=== PATIENT | female | born 1980 | race Caucasian/White ===

== ENCOUNTER → 2021-07-23 07:55 | Outpatient (BNVA) | payer BC, SELFPAY | PROVIDERS: PCP Family Medicine; Visit Provider Psychiatry & Neurology Neurology ==

== ENCOUNTER → 2021-09-15 14:54 | Outpatient (BNVA) | payer BC, SELFPAY | PROVIDERS: PCP Family Medicine; Visit Provider Psychiatry & Neurology Neurology | DX: Z13.89 Encounter for screening for other disorder (principal) ==

== ENCOUNTER → 2021-11-24 09:51 | Outpatient (REF) | payer BC, SELFPAY | LOC: HO.SL 09:51 | PROVIDERS: PCP Family Medicine; Visit Provider Psychiatry & Neurology Neurology | DX: G47.10 Hypersomnia, unspecified (principal); R06.83 Snoring; R53.83 Other fatigue | CPT/HCPCS: 95806 ==

== ENCOUNTER → 2022-07-13 09:23 | Outpatient (BNVA) | payer BC, SELFPAY | PROVIDERS: PCP Family Medicine; Visit Provider Psychiatry & Neurology Neurology | DX: Z13.89 Encounter for screening for other disorder (principal) ==

== ENCOUNTER 2023-10-25 14:14 | Outpatient (AMB) | payer BC, SELFPAY ==
--- NOTE | 2023-10-25 14:25 | MHC.OFFVIS ---
Vital Signs 10/25/23 14:26 Height 5 ft 4 in Weight 153 lb 4 oz BMI 26.3 BP 108/66 Blood Pressure Location Rt brachial Position Sitting Respiration 16 Pulse 71 Pulse Source Pulse Oximeter Pulse Oximetry (%) 100 Oxygen Delivery Method Room Air Intake Visit Reasons: Follow up - Confirmed Intake Note: Pt presents to the office for follow up of chronic migraines. Clip On Sunglasses Inspector Required: No Allergies No Known Allergies Allergy (Verified 10/25/23 14:26) Medication List - Last Reconciled 10/25/23 by Frances Garcia MD baclofen 20 mg (2 x 10 mg) PO BEDTIME 30 days magnesium oxide 400 mg PO BEDTIME multivitamin (Daily Multi-Vitamin tablet) 1 tab PO DAILY ondansetron 4 mg PO Q8H PRN sumatriptan succinate 100 mg orally; 1 tab at onset and can repeat in 2 hrs maximum 2 tabs a day topiramate 25 mg PO BEDTIME topiramate 50 mg PO BID HPI Comments Details: 43y/o female comes for follow up. Baclofen helps with her morning headaches She had 3- 8 migraines /mth and regular headaches every other day. she takes imitrex for migraines which used to help but not helping anymore and makes her nauseous. she is on magnesium , Vit B 2 . Magnesium helped with her sleep and her jaw.. she wears a mouth guard Home sleep test is normal [facility] Medical History (Updated 10/25/23 @ 14:59 by Frances Garcia MD) Kidney disease Fatigue Snoring Migraine headache Chronic headaches TMJ (dislocation of temporomandibular joint) Surgical History History of open heart surgery H/O foot surgery Family History Mother HTN (hypertension) Migraines Father Autoimmune hepatitis Social History Alcohol intake: former Patient Tobacco Use Status: Never used Tobacco Current occupational status: employed Current occupation: Teacher Physical Exam Vital Signs: Last Vital Signs Pulse 71 10/25/23 14:26 Resp 16 10/25/23 14:26 BP 108/66 10/25/23 14:26 Pulse Ox 100 10/25/23 14:26 Oxygen Delivery Method Room Air 10/25/23 14:26 BMI result Body Mass Index 26.3 Const General: cooperative, healthy appearing, comfortable and no acute distress Nutritional Appearance: overweight Orientation/consciousness: patient oriented x3 HEENT Other: Mallampatti grade 4 restricted opening of her mouth due to marah tight TMJ with clicking Eyes Pupils: Equal, round and reactive pupils present Neuro General: patient oriented x3, gait normal, tone normal, moves all extremities, no focal motor deficits and CN's II-XI intact bilaterally Cranial nerves: Yes Equal, round and reactive pupils present, Yes Bilaterally intact EOM present, Yes Nystagmus not present, Yes Normal facial strength present and Yes Midline tongue present Gait exam (Neuro): Normal gait present Motor exam (neuro): 5/5 motor strength present throughout, Pronator motor function not present and Normal motor muscle tone present throughout Psych Appearance: grossly normal Assessment & Plan Assessment & Plan (1) TMJ (dislocation of temporomandibular joint): Code(s): S03.00XA - Dislocation of jaw, unspecified side, initial encounter Category: Medical (2) Migraine headache: Code(s): G43.909 - Migraine, unspecified, not intractable, without status migrainosus (3) Chronic headaches: Code(s): R51.9 - Headache, unspecified; G89.29 - Other chronic pain Category: Medical Plan Topiramate 50mg qam and 75mg qhs Ajovy 675mg q 3 mths sq for migraine prevention Ubrelvy 100mg as needed for migraines zofran 4mg as needed for nausea. magnesium 4oomg and vitamin B2 400 mg do a prevention of her daily headaches and migraines. baclofen 20mg qhs for jaw tightness. PT for TMJ , ice heat therapy , home exercises continue Imitrex 100 mg as needed for her migraines and Excedrin migraine as needed. I suggested she continue using her mouth guard to decrease the jaw tightness Medications: New fremanezumab-vfrm (Ajovy Syringe) administer as 3 consecutive 225 mg injections 675 mg (4.5 mL) subcut [id number] 4.5 mL 3RF ubrogepant (Ubrelvy) 100 mg PO ONCE PRN 14 tabs 6RF migraine MDD 2 tabs Coding Level of Care Code Est Pt Level 4 (48514) Complex EM visit Add On G2211 Diagnoses TMJ (dislocation of temporomandibular joint) S03.00XA Migraine headache G43.909 Chronic headaches R51.9; G89.29
[2023-10-25 14:26] VITALS: BP 108/66; PULSE 71; RESP 16; O2SAT 100; BMI 26.3
== END 2023-10-25 15:06 | disposition home or self-care (01) ==
PROVIDERS: PCP Family Medicine; Visit Provider Psychiatry & Neurology Neurology
DX: S03.00XA Dislocation of jaw, unspecified side, initial encounter (principal); G43.909 Migraine, unspecified, not intractable, without status migrainosus; R51.9 Headache, unspecified; G89.29 Other chronic pain
CPT/HCPCS: 99214

== ENCOUNTER → 2023-10-25 14:14 | Outpatient (BNVA) | payer BC, SELFPAY | PROVIDERS: PCP Family Medicine; Visit Provider Psychiatry & Neurology Neurology ==

== ENCOUNTER 2024-05-02 14:10 | Outpatient (AMB) | payer BC, SELFPAY ==
--- NOTE | 2024-05-02 14:11 | A.OFFVIS_ITS ---
Vital Signs 05/02/24 14:12 Height 5 ft 4 in BP 122/80 Blood Pressure Location Rt brachial Position Sitting Intake Visit Reasons: 6mon follow up Intake Note: Patient presents for 6 month follow up. Allergies No Known Allergies Allergy (Verified 05/02/24 14:15) Medication List - Last Reconciled 05/02/24 by Frances Garcia MD baclofen 20 mg (2 x 10 mg) PO BEDTIME 30 days fremanezumab-vfrm (Ajovy Syringe) 675 mg (4.5 mL) subcut [id number] magnesium oxide 400 mg PO BEDTIME multivitamin (Daily Multi-Vitamin tablet) 1 tab PO DAILY ondansetron 4 mg PO Q8H PRN sumatriptan succinate 100 mg orally; 1 tab at onset and can repeat in 2 hrs maximum 2 tabs a day topiramate 50 mg PO BID ubrogepant (Ubrelvy) 100 mg PO ONCE PRN MDD 2 tabs HPI Comments Details: 43y/o female comes for follow up.Her migraine shave decreased significantly with Ajovy 675mg q 3 mths . 1 migraine a month and less severe. Baclofen helps with her morning headaches SUmatriptan helps with her migraines she is on magnesium , Vit B 2 . Magnesium helped with her sleep and her jaw.. she wears a mouth guard Home sleep test is normal [facility] Medical History (Updated 05/02/24 @ 14:30 by Frances Garcia MD) Chronic migraine without aura, not intractable, without status migrainosus Kidney disease Fatigue Snoring Migraine headache Chronic headaches TMJ (dislocation of temporomandibular joint) Surgical History History of open heart surgery H/O foot surgery Family History Mother HTN (hypertension) Migraines Father Autoimmune hepatitis Social History Alcohol intake: former Patient Tobacco Use Status: Never used Tobacco Current occupational status: employed Current occupation: Teacher Physical Exam Vital Signs: Last Vital Signs BP 122/80 05/02/24 14:12 Const General: cooperative, healthy appearing, comfortable and no acute distress Nutritional Appearance: overweight Orientation/consciousness: patient oriented x3 HEENT Other: Mallampatti grade 4 restricted opening of her mouth due to marah tight TMJ with clicking Eyes Pupils: Equal, round and reactive pupils present Neuro General: patient oriented x3, gait normal, tone normal, moves all extremities, no focal motor deficits and CN's II-XI intact bilaterally Cranial nerves: Yes Equal, round and reactive pupils present, Yes Bilaterally intact EOM present, Yes Nystagmus not present, Yes Normal facial strength present and Yes Midline tongue present Gait exam (Neuro): Normal gait present Motor exam (neuro): 5/5 motor strength present throughout, Pronator motor function not present and Normal motor muscle tone present throughout Psych Appearance: grossly normal Assessment & Plan Assessment & Plan (1) Chronic migraine without aura, not intractable, without status migrainosus: Code(s): G43.709 - Chronic migraine without aura, not intractable, without status migrainosus Category: Medical (2) TMJ (dislocation of temporomandibular joint): Code(s): S03.00XA - Dislocation of jaw, unspecified side, initial encounter Category: Medical Qualifiers: Encounter type: subsequent encounter Qualified Code(s): S03.00XD - Dislocation of jaw, unspecified side, subsequent encounter Plan Taper Topiramate 50mg bid , then 25mg qam and 50mg qhs , 25mg bid and stop Ajovy 675mg q 3 mths sq for migraine prevention magnesium 4oomg and vitamin B2 400 mg do a prevention of her daily headaches and migraines. baclofen 20mg qhs for jaw tightness continue Imitrex 100 mg as needed for her migraines and Excedrin migraine as needed. I suggested she continue using her mouth guard to decrease the jaw tightness Will get approval for botox for TMJ Medications: Discontinued topiramate Discontinued Reason: Doctor's Order 25 mg PO BEDTIME 30 tabs 6RF ubrogepant (Ubrelvy) Discontinued Reason: Patient no longer taking 100 mg PO ONCE PRN 14 tabs 6RF migraine MDD 2 tabs Coding Level of Care Code Est Pt Level 4 (41585) Complex EM visit Add On G2211 Diagnoses Chronic migraine without aura, not intractable, without status migrainosus G43.709 Dislocation of temporomandibular joint, subsequent encounter S03.00XD Encounter type: subsequent encounter
[2024-05-02 14:12] VITALS: BP 122/80
== END 2024-05-02 14:43 | disposition home or self-care (01) ==
PROVIDERS: PCP Family Medicine; Visit Provider Psychiatry & Neurology Neurology
DX: G43.709 Chronic migraine without aura, not intractable, without status migrainosus (principal); S03.00XD Dislocation of jaw, unspecified side, subsequent encounter
CPT/HCPCS: 99214

== ENCOUNTER 2024-06-26 09:31 | Outpatient (AMB) | payer BC, SELFPAY ==
--- NOTE | 2024-06-26 09:32 | MHC.OFFVIS ---
Vital Signs 06/26/24 09:33 Height 5 ft 4 in Weight 153 lb BMI 26.3 Intake Visit Reasons: BOTOX Intake Note: Patient presents for botox injection Allergies No Known Allergies Allergy (Verified 05/02/24 14:15) Medication List - Last Reconciled 06/26/24 by Frances Gracia MD baclofen 20 mg (2 x 10 mg) PO BEDTIME 30 days fremanezumab-vfrm (Ajovy Syringe) 675 mg (4.5 mL) subcut [id number] magnesium oxide 400 mg PO BEDTIME multivitamin (Daily Multi-Vitamin tablet) 1 tab PO DAILY onabotulinumtoxinA (Botox) 100 units IM ONCE 12 weeks ondansetron 4 mg PO Q8H PRN sumatriptan succinate 100 mg orally; 1 tab at onset and can repeat in 2 hrs maximum 2 tabs a day topiramate 50 mg PO BID HPI Comments Details: ? 43y/o female comes for treatment of migraines with botox. ??? Most frequent reported adverse reactions following injection of botox for chronic migraine include neck pain (9%), headache(5%), eyelid ptosis(4%), migraine(4%), muscular weakness(4%), musculuskeletal stiffness(4%), bronchitis(3%), injection site pain (3%), musculoskeletal pain(3%), myalgia(3%), facial paresis(2%), HTN(2%) and muscle spasms(2%) were discussed in detail. ??? Botulinum toxin typeA 200units Lot no [id number] expiration September 2025 was diluted with 4 cc of normal saline . ??? Muscles injected- ??? Frontalis 4 sites ??? Procerus 1 site ??? Technology Trainer- 2 sites ??? Temporalis- 8 sites ??? Occipitalis- 6 sites ??? Cervical paraspinals- 4 sites ??? Trapezius- 6 sites- 5 units each ??? 5 units each in 31 site Celio Zygomaticus 10 units each ??? Total use- 175units ??? Discarded-25units [facility] Medical History Chronic migraine without aura, not intractable, without status migrainosus Kidney disease Fatigue Snoring Migraine headache Chronic headaches TMJ (dislocation of temporomandibular joint) Surgical History History of open heart surgery H/O foot surgery Family History Mother HTN (hypertension) Migraines Father Autoimmune hepatitis Social History Alcohol intake: former Patient Tobacco Use Status: Never used Tobacco Current occupational status: employed Current occupation: Teacher Physical Exam Vital Signs: BMI result Body Mass Index 26.3 Const General: cooperative, healthy appearing, comfortable and no acute distress Nutritional Appearance: overweight Orientation/consciousness: patient oriented x3 HEENT Other: Mallampatti grade 4 restricted opening of her mouth due to celio tight TMJ with clicking Eyes Pupils: Equal, round and reactive pupils present Neuro General: patient oriented x3, gait normal, tone normal, moves all extremities, no focal motor deficits and CN's II-XI intact bilaterally Cranial nerves: Yes Equal, round and reactive pupils present, Yes Bilaterally intact EOM present, Yes Nystagmus not present, Yes Normal facial strength present and Yes Midline tongue present Gait exam (Neuro): Normal gait present Motor exam (neuro): 5/5 motor strength present throughout, Pronator motor function not present and Normal motor muscle tone present throughout Psych Appearance: grossly normal Office Procedures Botulinum toxin Injection 78395 - Migraine Procedure code (CPT) selection complete Office Meds onabotulinumtoxinA 200 unit solution for injection Performing Provider: Frances Garcia MD Performing Location: [facility] Administered by: Frances Garcia MD on 06/26/24 10:04 Dose Route Admin Location Dispensed Lot Number Expiration Date [facility] Freel[employer] Translator 175 unit IM 200 units [id number] ALLERGAN/BOTOX Comments: see hpi Assessment & Plan Assessment & Plan (1) Chronic migraine without aura, not intractable, without status migrainosus: Code(s): G43.709 - Chronic migraine without aura, not intractable, without status migrainosus Category: Medical (2) TMJ (dislocation of temporomandibular joint): Code(s): S03.00XA - Dislocation of jaw, unspecified side, initial encounter Category: Medical Qualifiers: Encounter type: subsequent encounter Qualified Code(s): S03.00XD - Dislocation of jaw, unspecified side, subsequent encounter Plan Patient tolerated the procedure well she will call with any side effects Orders: Orders AMB Botulinum toxin Injection - Patient Supplied N/C Today G43.709 - Chronic migraine without aura, not intractable, without status migrainosus Medications: New onabotulinumtoxinA 200 units IM ONCE 1 ea 0RF migraine G43.709 - Chronic migraine without aura, not intractable, without status migrainosus Coding Level of Care Code Est Pt Level 1 (96353) Diagnoses Chronic migraine without aura, not intractable, without status migrainosus G43.709 Dislocation of temporomandibular joint, subsequent encounter S03.00XD Encounter type: subsequent encounter CPT Codes Botox Injection - Botox 3: 43080 - Migraine ([id number])
[2024-06-26 09:33] VITALS: BMI 26.3
--- OUTSIDE RECORDS SUMMARY | 2024-06-26 10:03 | XMS_ITS | Clinical Summary ---
Author Organization [facility] Address [phone] Counts include 234 beds at the [facility] [employer] [place] [place] [address] Care Team Providers Care Manager Of Allied Health Services Name Role Phone Kellie Rucker NP Primary Care Provider + Karina Rao MD Unavailable [phone] Social History Tobacco Use Types Packs/Day Years Used Date Smoking Tobacco: Never Assessed Education Answer Date Recorded Are you interested in more education? Not on kennedy e 08/28/2023 Are you concerned about learning? Not on file 08/28/2023 No 08/28/2023 No 08/28/2023 Digital Access Answer Date Recorded No 08/28/2023 No 08/28/2023 Reliable internet access at home? Not on file 08/28/2023 Device with a working camera? Not on file Sex and Gender Information Value Date Recorded Sex Assigned at Not on file Gender Identity Not on file Sexual Orientation Not on file Plan of Treatment Not on file Medical Devices Not on file Care Teams Manager Of Allied Health Services Relationship Specialty Start Date End Date Kellie Rucker NP [address] [place] [id number] PCP - General Family Medicine 06/19/18 Karina Rao MD [address] [place] [phone] [email or web address] Insurance Assigned Provider 08/27/23 Additional Source Comments The information contained in this document represents components of the legal health record. It is not the complete legal health record.[facility]
--- OUTSIDE RECORDS SUMMARY | 2024-06-26 10:03 | XMS_ITS | Encounter Summary ---
Author Organization [facility] Address [address] [place] [address] Phone Care Team Providers Care Manager City Name Role Phone Karina Rao MD Primary Care Provider + Encounter Details Date Type Department Care Team (Late Contact Info) Description 05/28/2024 Telephone [facility] [address] [place] [address] Antionette Adams [address] [place] [phone] Social History Tobacco Use Types Packs/Day Years Used Date Smoking Tobacco: Never Alcohol Use Standard Drinks/Week Comments Defer 0 (1 standard drink = 0.6 oz pur e alcohol) Comments Unknown Sex and Gender Information Value Date Recorded Sex Assigned at Not on file Legal Sex Female 11:39 AM EST Gender Identity Not on file Sexual Orientation Not on file documented as of this encounter Miscellaneous Notes * Telephone Encounter - Antionette Adams - 05/28/2024 3:09 PM EST Not needed. documented in this encounter Plan of Treatment Upcoming Encounters Date Type Department Care Team (Late st Contact Info) Description 07/19/2024 2:00 PM EST Office Visit [facility] [address] [place] [address] Stan Mann MD [address] [place] [address] [place] [address] documented as of this encounter Visit Diagnoses Not on filedocumented in this encounter Care Teams Manager City Relationship Specialty Start Date End Date Karina Rao MD [address] [place] [phone] PCP - General Family Medicine 06/29/22 documented as of this encounter
--- OUTSIDE RECORDS SUMMARY | 2024-06-26 10:03 | XMS_ITS | Encounter Summary ---
Author Organization [facility] Address [address] [place] [address] Phone Care Team Providers Care Babcock Tester Name Role Phone Karina Rao MD Primary Care Provider + Encounter Details Date Type Department Care Team (Late Contact Info) Description 03/29/2024 Documentation Only [facility] [address] [place] [address] Antionette Adams [address] [place] [phone] Social History Tobacco Use Types Packs/Day [...] on file documented as of this encounter Plan of Treatment Upcoming Encounters Date Type Department Care Team (Late st Contact Info) Description 07/19/2024 2:00 PM EST Office Visit [facility] [address] [place] [address] Stan Mann MD [address] [place] [address] [place] [address] documented as of this encounter Visit Diagnoses Not on filedocumented in this encounter Care Teams Babcock Tester Relationship Specialty Start Date End Date Karina Rao MD [address] [place] [phone] PCP - General Family Medicine 06/29/22 documented as of this encounter
--- OUTSIDE RECORDS SUMMARY | 2024-06-26 10:03 | XMS_ITS | Encounter Summary ---
Author Organization [facility] Address [phone] [facility] [place] [address] Care Team Providers Care Frog Farmer Name Role Phone Kellie Rucker NP Primary Care Provider + Karina Rao MD Unavailable [phone] Encounter Details Date Type Department Care Team (Late st Contact Info) Description 06/19/2018 Ancillary Orders Virtual Department [address] [place] [address] Kellie Rucker NP [address] [place] [phone] Other specified symptoms and signs involving the circulatory and respiratory systems Social History Tobacco Use Types Packs/Day Years Used Date Smoking Tobacco: Never Assessed Sex and Gender Information Value Date Recorded Sex Assigned at Not on file Gender Identity Not on file Sexual Orientation Not on file documented as of this encounter Plan of Treatment Not on file documented as of this encounter Results * US Carotid Duplex (Bilateral) (06/23/2018 1:43 PM EST) Anatomical Region Laterality Modality Heart, Thoracic Vasculature, Neck Ultrasound 06/23/2018 1:52 PM EST Impressions 06/23/2018 1:54 PM EST Normal carotid ultrasound. No plaque or stenosis is apparent on either side. The source of bruit is not forthcoming. CAROTID STENOSIS REFERENCE USING NASCET CRITERIA: % ICA stenosis = (1 - narrowest ICA diameter/diameter of distal cervical ICA) x 100. Mild - < 50% stenosis. Moderate - 50-69% stenosis. Severe - 70-94% stenosis. Near occlusion - 95-99% stenosis. 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 POS [id number] Narrative 06/23/2018 1:54 PM EST No comparison The real-time exam shows no identifiable plaque in either bifurcation. Doppler analysis shows normal waveforms and velocities in all vessels. The peak systolic flow in the right ICA is about 112 cm/s and in the left ICA 101 cm/s. Normal systolic and diastolic ratios bilaterally. This combination of findings corresponds to less than 50% stenosis relative to distal ICA diameter. Antegrade flow is seen in both vertebral arteries. Procedure Note John Hill MD - 06/23/2018 No comparison The real-time exam shows no identifiable plaque in either bifurcation. Doppler analysis shows normal waveforms and velocities in all vessels. The peak systolic flow in the right ICA is about 112 cm/s and in the leftICA 101 cm/s. Normal systolic and diastolic ratios bilaterally. This combination of findings corresponds to less than 50% stenosisrelative to distal ICA diameter. Antegrade flow is seen in both vertebral arteries. IMPRESSION: Normal carotid ultrasound. No plaque or stenosis is apparent on eitherside. The source of bruit is not forthcoming. CAROTID STENOSIS REFERENCE USING NASCET CRITERIA: % ICA stenosis = (1 - narrowest ICA diameter/diameter of distal cervicalICA) x 100. Mild - < 50% stenosis. Moderate - 50-69% stenosis. Severe - 70-94% stenosis. Near occlusion - 95-99% stenosis. 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 POS [id number] Kellie Rucker NP CV US NEUROVASCU LAR documented in this encounter Visit Diagnoses Diagnosis Other specified symptoms and signs involving the circulatory and respiratory systems Other specified symptoms and signs involving the circulatory and respiratory systems documented in this encounter Care Teams Frog Farmer Relationship Specialty Start Date End Date Kellie Rcuker NP [address] [place] [phone] PCP - General Family Medicine 06/19/18 Karina Rao MD [address] [place] [phone] [email or web address] Insurance Assigned Provider 08/27/23 documented as of this encounter Additional Source Comments The information contained in this document represents components of the legal health record. It is not the complete legal health record.[facility]
--- OUTSIDE RECORDS SUMMARY | 2024-06-26 10:03 | XMS_ITS | Encounter Summary ---
Author Organization [facility] Address [address] [place] [address] Phone Care Team Providers Care Manager Fleet Name Role Phone Karina Rao MD Primary Care Provider + Encounter Details Date Type Department Care Team (Late Contact Info) Description 03/29/2024 Documentation Only [facility] [address] [place] [address] Antionette Adams [address] [place] [phone] Social History Tobacco Use Types Packs/Day [...] Visit [facility] [address] [place] [address] Stan Mann MD [address] [place] [address] [place] [address] documented as of this encounter Visit Diagnoses Not on filedocumented in this encounter Care Teams Manager Fleet Relationship Specialty Start Date End Date Karina Rao MD [address] [place] [id number] PCP - General Family Medicine 06/29/22 documented as of this encounter
--- OUTSIDE RECORDS SUMMARY | 2024-06-26 10:03 | XMS_ITS | Clinical Summary ---
Author Organization [facility] Address [address] [place] [address] Phone Care Team Providers Care Bulk Filler Name Role Phone Karina Rao MD Primary Care Provider + Allergies Active Allergy Reactions Criticality Noted Date Comments Gluten Meal Other (see comments) 09/09/2020 Medications Acetaminophen (Acetaminophen Extra Strength) 500 MG capsule 4 (four) times a day 0 Active Calcium-Magnes ium-Vitamin D (CALCIUM MAGNESIUM PO) Active piroxicam (Feldene) 20 MG capsule 1 (one) time each day 8 Active gabapentin (NEURONTIN) 300 MG capsule 1 capsule 0 Active ibuprofen (ADVIL,MOTRIN) 800 MG tablet 3 (three) times a day 0 Active cephalexin (Keflex) 500 MG capsule 2 (two) times a day 0 Active Multiple Vitamins-Guidance Counselor als (MULTIVITAMIN ADULT EXTRA C PO) Take by mouth 3 Active SUMAtriptan (IMITREX) 25 MG tablet 2 (two) times a day Active cyanocobalamin (VITAMIN B-12) 100 MCG tablet Activ e Ascorbic Acid (Vitamin C) 500 MG capsule See administration instructions Active Active Problems Problem Noted Date Diagnosed Date Chronic kidney disease 07/22/2022 Encounters Date Type Department Care Team Description 05/28/2024 Telephone [facility] [address] [place] [address] Antionette Adams 03/29/2024 Telephone [facility] [address] [place] [address] Antionette Adams 03/29/2024 Documentation Only [facility] [address] [place] [address] Antionette Adams 03/29/2024 Documentation Only [facility] [address] [place] [address] Antionette Adams 03/29/2024 Documentation Only [facility] [address] [place] [address] Antionette Adams from Last 3 Months Immunizations Name Administration Dates Next Due Influenza, Unspecified 03/01/2013 Tdap 12/01/2011 Family History Medical History Relation Comments Hyperlipidemia Father Relation Status Comments Father Social History Tobacco Use Types Packs/Day Years Used Date Smoking Tobacco: Never Tobacco Cessation:Counseling Given: Not Answered Alcohol Use Standard Drinks/Week Comments Defer 0 (1 standard drink = 0.6 oz pur e alcohol) Comments Unknown Sex and Gender Information Value Date Recorded Sex Assigned at Not on file Legal Sex Female 11:39 AM EST Gender Identity Not on file Sexual Orientation Not on file Last Filed Vital Signs Vital Sign Reading Time Taken Comments Blood Pressure 131/81 03/25/2023 3:14 PM EDT Pulse 75 03/25/2023 3:14 PM EDT Temperature - - Respiratory Rate - - Oxygen Saturation - - Inhaled Oxygen Concentration - - Weight - - Height - - Body Mass Index - - Plan of Treatment Upcoming Encounters Date Type Department Care Team (Late st Contact Info) Description 07/19/2024 2:00 PM EST Office [facility] [address] [place] [address] Stan Mann MD [address] [place] [address] [place] [address] Health Maintenance Due Date Last Done Comments Pneumococcal Vaccine: Pediat rics (0 to 5 Years) and At-Risk Patients (6 to 64 Years) (1 of 2 - PCV) 1986 Hepatitis B Vaccine (1 of 3 - 19+ 3-dose series) 10/18 Influenza Vaccine (#1) 2024 03/01/2013 Insurance [facility] Care Teams Bulk Filler Relationship Specialty Start Date End Date Karina Rao MD [address] [place] [phone] PCP - General Family Medicine 06/29/22
--- OUTSIDE RECORDS SUMMARY | 2024-06-26 10:03 | XMS_ITS | Encounter Summary ---
Author Organization [facility] Address [address] [place] [address] Phone Care Team Providers Care Nike Athlete Name Role Phone Karina Rao MD Primary Care Provider + Encounter Details Date Type Department Care Team (Late st Contact Info) Description 06/29/2022 Documentation Only [facility] [address] [place] [phone] Karina Rao MD [address] [place] [phone] Social History Tobacco Use Types Packs/Day Years Used Date Smoking Tobacco: Never Assessed Comments Unknown Sex and Gender Information Value Date Recorded Sex Assigned at Not on file Legal Sex Female 11:39 AM EST Gender Identity Not on file Sexual Orientation Not on file documented as of this encounter Plan of Treatment Upcoming Encounters Date Type Department Care Team (Late st Contact Info) Description 07/19/2024 2:00 PM EST Office Visit [facility] [address] [place] [phone] Stan Mann MD [address] [place] [address] [place] [phone] documented as of this encounter Visit Diagnoses Not on filedocumented in this encounter Care Teams Nike Athlete Relationship Specialty Start Date End Date Karina Rao MD [address] [place] [phone] PCP - General Family Medicine 2/7/23 documented as of this encounter
--- OUTSIDE RECORDS SUMMARY | 2024-06-26 10:03 | XMS_ITS | Encounter Summary ---
Author Organization [facility] Address [address] [place] [address] Phone Care Team Providers Care Ferryboat Captain Name Role Phone Karina Rao MD Primary Care Provider + Encounter Details Date Type Department Care Team (Late Contact Info) Description 03/29/2024 Documentation Only [facility] [address] [place] [address] Antionette Adams [address] [place] [phone] Social History Tobacco Use Types Packs/Day [...] Visit [facility] [address] [place] [address] Stan Mann MD [address] [place] [address] [place] [address] documented as of this encounter Visit Diagnoses Not on filedocumented in this encounter Care Teams Ferryboat Captain Relationship Specialty Start Date End Date Karina Rao MD [address] [place] [phone] PCP - General Family Medicine 06/29/22 documented as of this encounter
== END 2024-06-26 10:01 | disposition home or self-care (01) ==
PROVIDERS: PCP Family Medicine; Visit Provider Psychiatry & Neurology Neurology
DX: G43.709 Chronic migraine without aura, not intractable, without status migrainosus (principal)
CPT/HCPCS: 64615

== ENCOUNTER → 2024-06-26 09:31 | Outpatient (BNVA) | payer BC, SELFPAY | PROVIDERS: PCP Family Medicine; Visit Provider Psychiatry & Neurology Neurology | DX: G43.709 Chronic migraine without aura, not intractable, without status migrainosus (principal); S03.00XD Dislocation of jaw, unspecified side, subsequent encounter; X58.XXXD Exposure to other specified factors, subsequent encounter | CPT/HCPCS: 64615; 99211; J0585 ==

== ENCOUNTER 2024-10-02 13:53 | Outpatient (AMB) | payer BC, SELFPAY ==
[2024-10-02 13:59] VITALS: BMI 25.2
--- NOTE | 2024-10-02 13:59 | A.OFFVIS_ITS ---
Vital Signs 10/02/24 13:59 Height 5 ft 4 in Weight 147 lb BMI 25.2 Intake Visit Reasons: 6 mnts f/u appt BOTOX-LVM Intake Note: patient presents for botox injection.Patient Supplied Allergies No Known Allergies Allergy (Verified 05/02/24 14:15) Medication List - Last Reconciled 10/02/24 by Frances Garcia MD baclofen 20 mg (2 x 10 mg) PO BEDTIME 30 days fremanezumab-vfrm (Ajovy Syringe) 675 mg (4.5 mL) subcut [id number] magnesium oxide 400 mg PO BEDTIME multivitamin (Daily Multi-Vitamin tablet) 1 tab PO DAILY onabotulinumtoxinA (Botox) 100 units IM ONCE 12 weeks sumatriptan succinate 100 mg orally; 1 tab at onset and can repeat in 2 hrs maximum 2 tabs a day topiramate 50 mg PO BID HPI Comments Details: ? 43y/o female comes for treatment of migraines with botox. ??? Most frequent reported adverse reactions following injection of botox for c hronic migraine include neck pain (9%), headache(5%), eyelid ptosis(4%), migraine(4%), muscular weakness(4%), musculuskeletal stiffness(4%), bronchitis(3%), injection site pain (3%), musculoskeletal pain(3%), myalgia(3%), facial paresis(2%), HTN(2%) and muscle spasms(2%) were discussed in detail. ??? Botulinum toxin typeA 100units X2 Lot no [id number] 09/2026 , Lot no [id number] 02/2027 was diluted with 4 cc of normal saline . ??? Muscles injected- ??? Frontalis 4 sites ??? Procerus 1 site ??? Customer Support Technician- 2 sites ??? Temporalis- 8 sites ??? Occipitalis- 6 sites ??? Cervical paraspinals- 4 sites ??? Trapezius- 6 sites- 5 units each ??? 5 units each in 31 site Celio Zygomaticus 10 units each ??? Total use- 175units ??? Discarded-25units [facility] Medical History Chronic migraine without aura, not intractable, without status migrainosus Kidney disease Fatigue Snoring Migraine headache Chronic headaches TMJ (dislocation of temporomandibular joint) Surgical History History of open heart surgery H/O foot surgery Family History Mother HTN (hypertension) Migraines Father Autoimmune hepatitis Social History Alcohol intake: former Patient Tobacco Use Status: Never used Tobacco Current occupational status: employed Current occupation: Teacher Physical Exam Vital Signs: BMI result Body Mass Index 25.2 Const General: cooperative, healthy appearing, comfortable and no acute distress Nutritional Appearance: overweight Orientation/consciousness: patient oriented x3 HEENT Other: Mallampatti grade 4 restricted opening of her mouth due to celio tight TMJ with clicking Eyes Pupils: Equal, round and reactive pupils present Neuro General: patient oriented x3, gait normal, tone normal, moves all extremities, no focal motor deficits and CN's II-XI intact bilaterally Cranial nerves: Yes Equal, round and reactive pupils present, Yes Bilaterally intact EOM present, Yes Nystagmus not present, Yes Normal facial strength present and Yes Midline tongue present Gait exam (Neuro): Normal gait present Motor exam (neuro): 5/5 motor strength present throughout, Pronator motor function not present and Normal motor muscle tone present throughout Psych Appearance: grossly normal Office Procedures Botulinum toxin Injection 22030 - Migraine Procedure code (CPT) selection complete Office Meds onabotulinumtoxinA 100 unit solution for injection Performing Provider: Frances Garcia MD Performing Location: [facility] Administered by: Frances Garcia MD on 10/04/24 10:31 Dose Route Admin Location Dispensed Lot Number Expiration Date [facility] 185 unit subcut 200 units [id number] ALLERGAN/BOTOX Comments: see hpi Assessment & Plan Assessment & Plan (1) Chronic migraine without aura, not intractable, without status migrainosus: Code(s): G43.709 - Chronic migraine without aura, not intractable, without status migrainosus Category: Medical (2) TMJ (dislocation of temporomandibular joint): Code(s): S03.00XA - Dislocation of jaw, unspecified side, initial encounter Category: Medical Qualifiers: Encounter type: subsequent encounter Qualified Code(s): S03.00XD - Dislocation of jaw, unspecified side, subsequent encounter Plan Patient tolerated the procedure well she will call with any side effects Orders: Orders AMB Botulinum toxin Injection - Patient Supplied N/C 10/02/24 G43.709 - Chronic migraine without aura, not intractable, without status migrainosus Medications: New onabotulinumtoxinA 100 units subcut ONCE 2 ea 0RF migraine G43.709 - Chronic migraine without aura, not intractable, without status migrainosus Changed From onabotulinumtoxinA (Botox) inject up to 100 units IM into bilateral masseter, temporalis muscles 100 units IM ONCE 12 weeks 1 ea 3RF S03.00XD - Dislocation of jaw, unspecified side, subsequent encounter To onabotulinumtoxinA Migraines ,inject up to 100 units IM into bilateral masseter, temporalis muscles 200 units IM ONCE 12 weeks 1 ea 3RF S03.00XD - Dislocation of jaw, unspecified side, subsequent encounter Coding Level of Care Code Est Pt Level 1 (29228) Diagnoses Chronic migraine without aura, not intractable, without status migrainosus G43.709 Dislocation of temporomandibular joint, subsequent encounter S03.00XD Encounter type: subsequent encounter CPT Codes Botox Injection - Botox 3: 30523 - Migraine ([id number])
--- OUTSIDE RECORDS SUMMARY | 2024-10-02 15:06 | XMS_ITS | Encounter Summary ---
Author Organization [facility] Address [address] [place] [address] Phone Care Team Providers Care Pyrotechnic Assembler Name Role Phone Karina Rao MD Primary Care Provider + Encounter Details Date Type Department Care Team (Late Contact Info) Description 03/29/2024 Documentation Only [facility] [address] [place] [address] Antionette Adams [address] [place] [phone] Social History Tobacco Use Types Packs/Day [...] Care Team (Late st Contact Info) Description 08/26/2025 1:30 PM EDT Office Visit [facility] [address] [place] [address] Stan Mann MD [address] [place] [address] [place] [address] documented as of this encounter Visit Diagnoses Not on filedocumented in this encounter Care Teams Pyrotechnic Assembler Relationship Specialty Start Date End Date Karina Rao MD [address] [place] [phone] PCP - General Family Medicine 06/29/22 documented as of this encounter
--- OUTSIDE RECORDS SUMMARY | 2024-10-02 15:06 | XMS_ITS | Encounter Summary ---
Author Organization [facility] Address [address] [place] [address] Phone Care Team Providers Care Farm Reporter Name Role Phone Karina Rao MD Primary Care Provider + Encounter Details Date Type Department Care Team (Late Contact Info) Description 03/29/2024 Documentation Only [facility] [address] [place] [address] Antionette Adams [address] [place] [phone] Social History Tobacco Use Types Packs/Day [...] Visit [facility] [address] [place] [address] Stan Mann MD [address] [place] [address] [place] [address] documented as of this encounter Visit Diagnoses Not on filedocumented in this encounter Care Teams Farm Reporter Relationship Specialty Start Date End Date Karina Rao MD [address] [place] [phone] PCP - General Family Medicine 06/29/22 documented as of this encounter
--- OUTSIDE RECORDS SUMMARY | 2024-10-02 15:06 | XMS_ITS | Clinical Summary ---
Author Organization [facility] Address [address] [place] [address] Phone Care Team Providers Care Digital Marketing Analyst Name Role Phone Kellie Rucker NP Primary Care Provider + Karina Rao MD Unavailable Social History Tobacco Use Types Packs/Day Years [...] with a working camera? Not on file Comments Unknown Sex and Gender Information Value Date Recorded Sex Assigned at Not on file Legal Sex Female 9:21 PM EDT Gender Identity Not on file Sexual Orientation Not on file Plan of Treatment Not on file Medical Devices Not on file Insurance [facility] Care Teams Digital Marketing Analyst Relationship Specialty Start Date End Date Kellie Rucker NP [address] [place] [phone] PCP - General Family Medicine 06/19/18 Karina Rao MD [address] [place] [phone] [email or web address] Insurance Assigned Provider 08/27/23 Additional Source Comments The information contained in this document represents components of the legal health record. It is not the complete legal health record.[facility]
--- OUTSIDE RECORDS SUMMARY | 2024-10-02 15:06 | XMS_ITS | Clinical Summary ---
Author Organization [facility] Address [address] [place] [address] Phone Care Team Providers Care Central Communications Specialist Name Role Phone Karina Rao MD Primary [...] (two) times a day 0 Active Multiple Vitamins-Motor Vehicle Assembler als (MULTIVITAMIN ADULT EXTRA C PO) Take by mouth 3 Active SUMAtriptan (IMITREX) 25 MG tablet 2 (two) times a day Active cyanocobalamin (VITAMIN B-12) 100 MCG tablet Activ e Ascorbic Acid (Vitamin C) 500 MG capsule See administration instructions Active Active Problems Problem Noted Date Diagnosed Date Chronic kidney disease 07/22/2022 Encounters Date Type Department Care Team Description 08/23/2024 3:00 PM EDT Office Visit [facility], [address] [place] [address] Stan Mann MD Chronic kidney disease, stage 2 (mild) (Primary Dx) from Last 3 Months Immunizations Immunization Administration Dates Next Due Influenza, Unspecified 03/01/2013 [...] Sign Reading Time Taken Comments Blood Pressure 111/70 08/23/2024 3:14 PM EDT Pulse 80 08/23/2024 3:14 PM EDT Temperature - - Respiratory Rate - - Oxygen Saturation - - Inhaled Oxygen Concentration - - Weight - - Height - - Body Mass Index - - Plan of Treatment Upcoming Encounters Date Type Department Care Team (Late st Contact Info) Description 08/26/2025 1:30 PM EDT Office Visit [facility] [address] [place] [address] Stan Mann MD [address] [place] [address] [place] [phone] Health Maintenance Due Date Last Done Comments Hepatitis B Vaccine (1 of 3 - 19+ 3-dose series) 10/18 Pneumococcal Vaccine: Peds ( 0 to 5 Years) and At-Risk Patients (6 to 49 Years) (1 of 2 - PCV) 10/19/1999 Influenza Vaccine (Season Ended) 2025 03/01/20 13 Insurance [facility] Care Teams Central Communications Specialist Relationship Specialty Start Date End Date Karina Rao MD [address] [place] [phone] PCP - General Family Medicine 06/29/22
--- OUTSIDE RECORDS SUMMARY | 2024-10-02 15:06 | XMS_ITS | Encounter Summary ---
Author Organization [facility] Address [address] [place] [address] Phone Care Team Providers Care Natural Gas Inspector Name Role Phone Karina Rao MD Primary Care Provider + Encounter Details Date Type Department Care Team (Late Contact Info) Description 03/29/2024 Documentation Only [facility] [address] [place] [address] Antionette Adams [address] [place] [phone] Social History Tobacco Use Types Packs/Day [...] Visit [facility] [address] [place] [address] Stan Mann MD [address] [place] [address] [place] [address] documented as of this encounter Visit Diagnoses Not on filedocumented in this encounter Care Teams Natural Gas Inspector Relationship Specialty Start Date End Date Karina Rao MD [address] [place] [phone] PCP - General Family Medicine 06/29/22 documented as of this encounter
--- OUTSIDE RECORDS SUMMARY | 2024-10-02 15:06 | XMS_ITS | Encounter Summary ---
Author Organization [facility] Address [address] [place] [address] Phone Care Team Providers Care Heel Stiffener Name Role Phone Karina Rao MD Primary Care Provider + Encounter Details Date Type Department Care Team (Late st Contact Info) Description 06/29/2022 Documentation Only [facility] [address] [place] [phone] Kairna Rao MD [address] [place] [phone] Social History Tobacco Use Types Packs/Day Years [...] Visit [facility] [address] [place] [address] Stan Mann MD [address] [place] [address] [place] [address] documented as of this encounter Visit Diagnoses Not on filedocumented in this encounter Care Teams Heel Stiffener Relationship Specialty Start Date End Date Karina Rao MD [address] [place] [phone] PCP - General Family Medicine 06/29/22 documented as of this encounter
--- OUTSIDE RECORDS SUMMARY | 2024-10-02 15:06 | XMS_ITS | Encounter Summary ---
Author Organization [facility] Address [address] [place] [address] Phone Care Team Providers Care Hand Sign Writer Name Role Phone Kellie Rucker NP Primary Care Provider + Karina Rao MD Unavailable [phone] Encounter Details Date Type Department Care Team (Late st Contact Info) Description 06/19/2018 Ancillary Orders Virtual Department [address] [place] [address] Kellie Rucker NP [address] [place] [address] [phone] Other specified symptoms and signs involving the [...] 95-99% stenosis. 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 POS [id number] Narrative 06/23/2018 1:54 PM EST No comparison [...] 95-99% stenosis. 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 POS [id number] us Kellie Rucker TWISTER OPERATOR CV US NEUROVASCULAR Lina l Result documented in this encounter Visit Diagnoses Diagnosis Other specified symptoms and signs involving the circulatory and respiratory systems Other specified symptoms and signs involving the circulatory and respiratory systems documented in this encounter Care Teams Hand Sign Writer Relationship Specialty Start Date End Date Kellie Rucker NP [address] [place] [phone] PCP - General Family Medicine 06/19/18 Karina Rao MD [address] [place] [phone] [email or web address] Insurance Assigned Provider 08/27/23 documented as of this encounter Additional Source Comments The information contained in this document represents components of the legal health record. It is not the complete legal health record.[facility]
--- OUTSIDE RECORDS SUMMARY | 2024-10-02 15:07 | XMS_ITS | Patient Health Record ---
Author Organization [facility] Address [address] [facility] [place] [address] Care Team Providers Care Housekeeping/Laundry Name Role Phone Karina Rao MD Primary Care Provider Codi vailable Black, Poly Unavailable [phone] Allergies Allergen (clinical drug ingredient) Drug/Non Drug Allergy documented on EMR Reaction Allergy Type Onset Date Status Gluten Gluten Unknown Allergy Active Reason For Referral No Information Medications Medication SIG (Take, Route, Frequency, Duration) Notes Start Date End Date Status SUMAtriptan Succinate 25 MG 1 tablet at least 2 hours between doses as needed Orally Twice a day Active Physical Therapy . . . 2-3x/week for 3- 4 weeks 03/27/2020 Not-Taking Vitamin C 500 MG as directed Orally Active Calcium Magnesium Ac tive Vitamin B12 Active Keflex 500 MG as directed Orally B ID for 10 days 03/06/2020 Not-Taking Feldene 20 MG 1 capsule with food Orally Once a day for 30 day(s) 12/19/2017 Unknown Gabapentin 300 MG 1 capsule Orally Onc e a day for 30 day(s) 02/15/2020 Not-Taking Ibuprofen 800 MG 1 tablet with food o r milk as needed Orally Three times a day for 14 days 02/15/2020 Not-Taking Acetaminophen Extra Strength 500 MG 2 tablets Orally every 6 hrs for 14 days 02/15/2020 Not-Taking Social History Tobacco Use: Social History Observation Description Date Details (start date - stop date) Never Smoker NA - NA Tobacco Use/Smoking Question Answer Notes Are you a: nonsmoker Additional Findings: Tobacco Non-User Current no n-smoker Alcohol Screen Question Answer Notes Did you have a drink contain ing alcohol in the past year? Yes How often did you have a dri nk containing alcohol in the past year? 2 to 4 times a month (2 points) Points 2 Interpretation Negative Tobacco use other than smoking: Question Answer Notes Are you an other tobacco user? No Problems No Known Problems Plan Of Treatment Pending Test Test Name Order Date X ray : Foot, right 2V 03/06/2020 X ray : Foot, right 3V 03/18/2020 Insurance Providers Payer Name Payer Address Payer Phone Subscriber Number Group Number Insured Name Patient Relationship to Insured Coverage Start Date Coverage End Date [facility] [address] [place] [address] [id number] Eveline Montalvo Self - patient is the insured Medical (General) History Medical History History ICD Code Headaches/Migraines Chicken pox Surgical History Surgery Date(Month/Year) atrial septal defect repair 06/1990 Chante Bunionectomy R 1 hr Yoel B/Dona
== END 2024-10-02 14:35 | disposition home or self-care (01) ==
LOC: HO.HSMS 13:54
PROVIDERS: PCP Family Medicine; Visit Provider Psychiatry & Neurology Neurology
DX: G43.709 Chronic migraine without aura, not intractable, without status migrainosus (principal)
CPT/HCPCS: 64615

== ENCOUNTER → 2024-10-02 13:53 | Outpatient (BNVA) | payer BC, SELFPAY | PROVIDERS: PCP Family Medicine; Visit Provider Psychiatry & Neurology Neurology | DX: G43.709 Chronic migraine without aura, not intractable, without status migrainosus (principal); S03.00XD Dislocation of jaw, unspecified side, subsequent encounter | CPT/HCPCS: 64615; 99211; J0585 ==

== ENCOUNTER 2025-01-08 13:54 | Outpatient (AMB) | payer BC, SELFPAY ==
--- NOTE | 2025-01-08 13:57 | MHC.OFFVIS ---
Vital Signs 01/08/25 13:58 Height 5 ft 4 in Weight 142 lb BMI 24.4 BP 118/76 Blood Pressure Location Rt brachial Position Sitting Pulse 66 Pulse Source Pulse Oximeter Pulse Oximetry (%) 100 Oxygen Delivery Method Room Air Intake Visit Reasons: Botox Intake Note: Botox Adjunct Instructor Chemistry Required: No Accompanied by: Self / Same As Patient Allergies No Known Allergies Allergy (Verified 01/08/25 14:00) HPI Comments Details: ? 43y/o female comes for treatment of migraines with botox. ??? Most frequent reported adverse reactions following injection of botox for chronic migraine include neck pain (9%), headache(5%), eyelid ptosis(4%), migraine(4%), muscular weakness(4%), musculuskeletal stiffness(4%), bronchitis(3%), injection site pain (3%), musculoskeletal pain(3%), myalgia(3%), facial paresis(2%), HTN(2%) and muscle spasms(2%) were discussed in detail. ??? Botulinum toxin typeA 200 units was diluted with 4 cc of normal saline . ??? Muscles injected- ??? Frontalis 4 sites ??? Procerus 1 site ??? Bark Peeler- 2 sites ??? Temporalis- 8 sites ??? Occipitalis- 6 sites ??? Cervical paraspinals- 4 sites ??? Trapezius- 6 sites- 5 units each ??? 5 units each in 31 site Celio Zygomaticus 10 units each ??? Total use- 175units ??? Discarded-25units [facility] Medical History Chronic migraine without aura, not intractable, without status migrainosus Kidney disease Fatigue Snoring Migraine headache Chronic headaches TMJ (dislocation of temporomandibular joint) Surgical History History of open heart surgery H/O foot surgery Family History Mother HTN (hypertension) Migraines Father Autoimmune hepatitis Social History Alcohol intake: former Patient Tobacco Use Status: Never used Tobacco Current occupational status: employed Current occupation: Teacher Physical Exam Vital Signs: Last Vital Signs Pulse 66 01/08/25 13:58 BP 118/76 01/08/25 13:58 Pulse Ox 100 01/08/25 13:58 Oxygen Delivery Method Room Air 01/08/25 13:58 BMI result Body Mass Index 24.4 Const General: cooperative, healthy appearing, comfortable and no acute distress Nutritional Appearance: overweight Orientation/consciousness: patient oriented x3 HEENT Other: Mallampatti grade 4 restricted opening of her mouth due to celio tight TMJ with clicking Eyes Pupils: Equal, round and reactive pupils present Neuro General: patient oriented x3, gait normal, tone normal, moves all extremities, no focal motor deficits and CN's II-XI intact bilaterally Cranial nerves: Yes Equal, round and reactive pupils present, Yes Bilaterally intact EOM present, Yes Nystagmus not present, Yes Normal facial strength present and Yes Midline tongue present Gait exam (Neuro): Normal gait present Motor exam (neuro): 5/5 motor strength present throughout, Pronator motor function not present and Normal motor muscle tone present throughout Psych Appearance: grossly normal Office Procedures Botulinum toxin Injection 42549 - Migraine Procedure code (CPT) selection complete Office Meds onabotulinumtoxinA 200 unit solution for injection Performing Provider: Frances Garcia MD Performing Location[place] [facility] Administered by: Frances Garcia MD on 01/08/25 15:41 Dose Route Admin Location Dispensed Lot Number Expiration Date [facility] Chef Teacher 175 unit subcut 200 units 0523-3945-11 ALLERGAN/BOTOX Total Dispensed Waste 200 units 12.5 % Comments: see hpi Assessment & Plan Assessment & Plan (1) Chronic migraine without aura, not intractable, without status migrainosus: Code(s): G43.709 - Chronic migraine without aura, not intractable, without status migrainosus Category: Medical (2) TMJ (dislocation of temporomandibular joint): Code(s): S03.00XA - Dislocation of jaw, unspecified side, initial encounter Category: Medical Qualifiers: Encounter type: subsequent encounter Qualified Code(s): S03.00XD - Dislocation of jaw, unspecified side, subsequent encounter Plan Patient tolerated the procedure well she will call with any side effects Orders: Orders AMB Botulinum toxin Injection - Patient Supplied N/C Today G43.709 - Chronic migraine without aura, not intractable, without status migrainosus Coding Level of Care Code Est Pt Level 1 (84279) Diagnoses Chronic migraine without aura, not intractable, without status migrainosus G43.709 Dislocation of temporomandibular joint, subsequent encounter S03.00XD Encounter type: subsequent encounter CPT Codes Botox Injection - Botox 3: 43253 - Migraine ([id number])
[2025-01-08 13:58] VITALS: BP 118/76; PULSE 66; O2SAT 100; BMI 24.4
--- OUTSIDE RECORDS SUMMARY | 2025-01-08 15:13 | XMS_ITS | Clinical Summary ---
Author Organization [facility] Address [address] [place] [address] Phone Care Team Providers Care Biomedical Equipment Support Specialist Name Role Phone Kellie Rucker NP Primary Care Provider + Karina Rao MD Unavailable [phone] Social History Tobacco Use Types Packs/Day Years [...] file Medical Devices Not on file Insurance [facility] Care Teams Biomedical Equipment Support Specialist Relationship Specialty Start Date End Date Kellie Rucker NP [address] [place] [phone] PCP - General Family Medicine 06/19/18 Karina Rao MD [address] [place] [phone] [email or web address] Insurance Assigned Provider 08/27/23 Additional Source Comments The information contained in this document represents components of the legal health record. It is not the complete legal health record.[facility]
--- OUTSIDE RECORDS SUMMARY | 2025-01-08 15:13 | XMS_ITS | Patient Health Record ---
[facility] Address [address] [facility] [place] [address] Care Team Providers Care Mobile Ui Designer Name Role Phone Karina Rao MD Primary Care Provider Codi vailable Black, Poly Unavailable [phone] Allergies Allergen (clinical drug ingredient) Drug/Non Drug [...] day Active Physical Therapy . . . 2-3x/week; Duration: 3-4 weeks 03/27/2020 Not-Taking Vitamin C 500 MG as directed Orally Active Calcium Magnesium Ac tive Vitamin B12 Active Keflex 500 MG as directed Orally BID; Duration: 10 days 03/06/2020 Not-Takin g Feldene 20 MG 1 capsule with food Orally Once a day; Duration: 30 day(s) 12/19/2017 Unknown Gabapentin 300 MG 1 capsule Orally Onc e a day; Duration: 30 day(s) 02/15/2020 Not-Taking Ibuprofen 800 MG 1 tablet with food o r milk as needed Orally Three times a day; Duration: 14 days 02/15/2020 Not-Taking Acetaminophen Extra Strength 500 MG 2 tablets Orally every 6 hrs; Duration: 14 days 02/15/2020 Not-Taking Social History Tobacco [...] Insured Coverage Start Date Coverage End Date [facility] [address] [place] [address] [id number] Eveline Alejandra Self - patient is the insured Medical (General) History Medical History History ICD Code Headaches/Migraines Chicken pox Surgical History Surgery Date(Month/Year) atrial septal defect repair 06/1990 [facility] Bunionectomy R 1 hr Yoel B/Dona
--- OUTSIDE RECORDS SUMMARY | 2025-01-08 15:13 | XMS_ITS | Encounter Summary ---
Author Organization [facility] Address [address] [place] [address] Phone Care Team Providers Care Academic Support Coordinator Name Role Phone Karina Rao MD Primary Care Provider + Encounter Details Date Type Department Care Team (Late st Contact Info) Description 06/29/2022 Documentation Only [facility] [address] [place] [phone] Karina Rao MD [address] [place] [id number] Social History Tobacco Use Types Packs/Day Years [...] Visit [facility] [address] [place] [address] Stan Mann MD [address] [place] [address] [place] [address] documented as of this encounter Visit Diagnoses Not on filedocumented in this encounter Care Teams Academic Support Coordinator Relationship Specialty Start Date End Date Karina Rao MD [address] [place] [phone] PCP - General Family Medicine 06/29/22 documented as of this encounter
== END 2025-01-08 14:18 | disposition home or self-care (01) ==
LOC: HO.HSMS 13:55
PROVIDERS: PCP Family Medicine; Visit Provider Psychiatry & Neurology Neurology
DX: G43.709 Chronic migraine without aura, not intractable, without status migrainosus (principal); S03.00XD Dislocation of jaw, unspecified side, subsequent encounter
CPT/HCPCS: 64615; 99499

== ENCOUNTER → 2025-01-08 13:54 | Outpatient (BNVA) | payer BC, SELFPAY | PROVIDERS: PCP Family Medicine; Visit Provider Psychiatry & Neurology Neurology | DX: G43.709 Chronic migraine without aura, not intractable, without status migrainosus (principal) | CPT/HCPCS: 64615; J0585 ==

== ENCOUNTER 2025-04-16 13:50 | Outpatient (AMB) | payer BC, SELFPAY ==
--- NOTE | 2025-04-16 14:00 | MHC.OFFVIS ---
Vital Signs 04/16/25 14:01 Height 5 ft 4 in Weight 142 lb 8 oz BMI 24.5 BP 136/70 Blood Pressure Location Rt brachial Position Sitting Pulse 72 Pulse Source Pulse Oximeter Pulse Oximetry (%) 100 Oxygen Delivery Method Room Air Intake Visit Reasons: Botox Intake Note: Botox 200 Pt supplied Employee Counselor Required: No Accompanied by: Self / Same As Patient Allergies No Known Allergies Allergy (Verified 04/16/25 14:01) Medication List - Last Reconciled 04/16/25 by Frances Garcia MD baclofen 20 mg (2 x 10 mg) PO BEDTIME 30 days fremanezumab-vfrm (Ajovy Syringe) 675 mg (4.5 mL) subcut [id number] magnesium oxide 400 mg PO BEDTIME multivitamin (Daily Multi-Vitamin tablet) 1 tab PO DAILY onabotulinumtoxinA 200 units IM ONCE 12 weeks sumatriptan succinate 100 mg orally; 1 tab at onset and can repeat in 2 hrs maximum 2 tabs a day topiramate 50 mg PO BID HPI Comments Details: ? 43y/o female comes for treatment of migraines with botox. ??? Most frequent reported adverse reactions following injection of botox for chronic migraine include neck pain (9%), headache(5%), eyelid ptosis(4%), migraine(4%), muscular weakness(4%), musculuskeletal stiffness(4%), bronchitis(3%), injection site pain (3%), musculoskeletal pain(3%), myalgia(3%), facial paresis(2%), HTN(2%) and muscle spasms(2%) were discussed in detail. ??? Botulinum toxin typeA 200 units D [id number] exp 08/17 was diluted with 4 cc of normal saline . ??? Muscles injected- ??? Frontalis 4 sites ??? Procerus 1 site ??? Apiarist- 2 sites ??? Temporalis- 8 sites ??? Occipitalis- 6 sites ??? Cervical paraspinals- 4 sites ??? Trapezius- 6 sites- 5 units each ??? 5 units each in 31 site Celio Zygomaticus 10 units each ??? Total use- 175units ??? Discarded-25units [facility] Medical History Chronic migraine without aura, not intractable, without status migrainosus Kidney disease Fatigue Snoring Migraine headache Chronic headaches TMJ (dislocation of temporomandibular joint) Surgical History History of open heart surgery H/O foot surgery Family History Mother HTN (hypertension) Migraines Father Autoimmune hepatitis Social History Alcohol intake: former Patient Tobacco Use Status: Never used Tobacco Current occupational status: employed Current occupation: Teacher Physical Exam Vital Signs: Last Vital Signs Pulse 72 04/16/25 14:01 BP 136/70 04/16/25 14:01 Pulse Ox 100 04/16/25 14:01 Oxygen Delivery Method Room Air 04/16/25 14:01 BMI result Body Mass Index 24.5 Const General: cooperative, healthy appearing, comfortable and no acute distress Nutritional Appearance: overweight Orientation/consciousness: patient oriented x3 HEENT Other: Mallampatti grade 4 restricted opening of her mouth due to celio tight TMJ with clicking Eyes Pupils: Equal, round and reactive pupils present Neuro General: patient oriented x3, gait normal, tone normal, moves all extremities, no focal motor deficits and CN's II-XI intact bilaterally Cranial nerves: Yes Equal, round and reactive pupils present, Yes Bilaterally intact EOM present, Yes Nystagmus not present, Yes Normal facial strength present and Yes Midline tongue present Gait exam (Neuro): Normal gait present Motor exam (neuro): 5/5 motor strength present throughout, Pronator motor function not present and Normal motor muscle tone present throughout Psych Appearance: grossly normal Office Procedures Botulinum toxin Injection 17957 - Migraine Procedure code (CPT) selection complete Office Meds onabotulinumtoxinA 200 unit solution for injection Performing Provider: Frances Garcia MD Performing Location: [facility] Administered by: Frances Garcia MD on 04/16/25 14:49 Dose Route Admin Location Dispensed Lot Number Expiration Date [facility] Portfolio Mgr 200 unit subcut 200 units [id number] ALLERGAN/BOTOX Total Dispensed Waste 200 units 0 % Assessment & Plan Assessment & Plan (1) Chronic migraine without aura, not intractable, without status migrainosus: Code(s): G43.709 - Chronic migraine without aura, not intractable, without status migrainosus Category: Medical (2) TMJ (dislocation of temporomandibular joint): Code(s): S03.00XA - Dislocation of jaw, unspecified side, initial encounter Category: Medical Qualifiers: Encounter type: subsequent encounter Qualified Code(s): S03.00XD - Dislocation of jaw, unspecified side, subsequent encounter Plan Patient tolerated the procedure well she will call with any side effects Orders: Orders AMB Botulinum toxin Injection - Patient Supplied N/C Today G43.709 - Chronic migraine without aura, not intractable, without status migrainosus Coding Level of Care Code Est Pt Level 1 (02491) Diagnoses Chronic migraine without aura, not intractable, without status migrainosus G43.709 Dislocation of temporomandibular joint, subsequent encounter S03.00XD Encounter type: subsequent encounter CPT Codes Botox Injection - Botox 3: 01401 - Migraine ([id number])
[2025-04-16 14:01] VITALS: BP 136/70; PULSE 72; O2SAT 100; BMI 24.5
--- OUTSIDE RECORDS SUMMARY | 2025-04-16 17:44 | XMS_ITS | Encounter Summary ---
Author Organization [facility] Address [address] [place] [address] Phone Care Team Providers Care Radiology Nurse Name Role Phone Kellie Rucker NP Primary Care Provider + Karina Rao MD Unavailable [phone] Karina Rao MD Primary Care Provider + Encounter Details Date Type Department Care Team (Late st Contact Info) Description 06/19/2018 Ancillary Orders Virtual Department [address] [place] [address] Kellie Rucker NP [address] [place] [phone] Other specified symptoms and signs involving the [...] Care Team (Late st Contact Info) Description 05/21/2025 8:45 AM EST Office Visit [facility] [address] [place] [address] Corinna Nowak, NADIA [address] [address] [email or web address] documented as of this encounter Results * [...] 95-99% stenosis. 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 POS [id number] Narrative 06/23/2018 1:54 PM EST No comparison [...] 95-99% stenosis. 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 POS [id number] us Kellie Rucker BASKET BRAIDER CV US NEUROVASCULAR Lina l Result documented in this encounter Visit Diagnoses Diagnosis Other specified symptoms and signs involving the circulatory and respiratory systems Other specified symptoms and signs involving the circulatory and respiratory systems documented in this encounter Care Teams Radiology Nurse Relationship Specialty Start Date End Date Kellie Rucker NP [address] [place] [address] PCP - General Family Medicine 06/19/18 03/10/25 Karina Rao MD [address] [place] [phone] [email or web address] PCP - General Family Medicine 03/11/25 Karina Rao MD [address] [place] [phone] [email or web address] Insurance Assigned Provider 08/27/23 documented as of this encounter Additional Source Comments The information contained in this document represents components of the legal health record. It is not the complete legal health record.[facility]
--- OUTSIDE RECORDS SUMMARY | 2025-04-16 17:44 | XMS_ITS | Encounter Summary ---
Author Organization [facility] Address [address] [place] [address] Phone Care Team Providers Care Sheet Metal Insulator Name Role Phone Karina Rao MD Primary Care Provider + Encounter Details Date Type Department Care Team (Late Contact Info) Description 03/29/2024 Documentation Only [facility] [address] [place] [address] Antionette Adams [address] [place] [phone] Social History Tobacco Use Types Packs/Day [...] Visit [facility] [address] [place] [address] Stan Mann MD [address] [place] [address] [place] [address] documented as of this encounter Visit Diagnoses Not on filedocumented in this encounter Care Teams Sheet Metal Insulator Relationship Specialty Start Date End Date Karina Rao MD [address] [place] [phone] PCP - General Family Medicine 06/29/22 documented as of this encounter
--- OUTSIDE RECORDS SUMMARY | 2025-04-16 17:44 | XMS_ITS | Encounter Summary ---
Author Organization [facility] Address [address] [place] [address] Phone Care Team Providers Care Guest Service Team Leader Name Role Phone Karina Rao MD Primary Care Provider + Encounter Details Date Type Department Care Team (Late Contact Info) Description 03/29/2024 Documentation Only [facility] [address] [place] [address] Antionette Adams [address] [place] [phone] Social History Tobacco Use Types Packs/Day [...] Visit [facility] [address] [place] [address] Stan Mann MD [address] [place] [address] [place] [address] documented as of this encounter Visit Diagnoses Not on filedocumented in this encounter Care Teams Guest Service Team Leader Relationship Specialty Start Date End Date Karina Rao MD [address] [place] [phone] PCP - General Family Medicine 06/29/22 documented as of this encounter
--- OUTSIDE RECORDS SUMMARY | 2025-04-16 17:44 | XMS_ITS | Encounter Summary ---
Author Organization [facility] Address [address] [place] [address] Phone Care Team Providers Care Medicaid Billing Clerk Name Role Phone Karina Rao MD Primary Care Provider + Encounter Details Date Type Department Care Team (Late st Contact Info) Description 06/29/2022 Documentation Only [facility] [address] [place] [phone] Karina Rao MD [address] [place] [phone] Social History Tobacco Use Types Packs/Day Years [...] Visit [facility] [address] [place] [address] Stan Mann MD [address] [place] [address] [place] [address] documented as of this encounter Visit Diagnoses Not on filedocumented in this encounter Care Teams Medicaid Billing Clerk Relationship Specialty Start Date End Date Karina Rao MD [address] [place] [phone] PCP - General Family Medicine 06/29/22 documented as of this encounter
--- OUTSIDE RECORDS SUMMARY | 2025-04-16 17:44 | XMS_ITS | Clinical Summary ---
Author Organization [facility] Address [address] [place] [address] Phone Care Team Providers Care Short Haul Driver Name Role Phone Karina Rao MD Unavailable [phone] Karina Rao MD Primary Care Provider + Medications AJOVY AUTOINJECTOR 225 mg/1.5 mL subcutaneous auto-injector Inject 225 mg under the skin every 30 (thirty) days. 02/13/2025 Active topiramate (TOPAMAX) 50 MG tablet Take 1 tablet by mouth 2 (two) times a day. 01/21/2025 Active BOTOX 200 unit SolR Inject 200 Units into the muscle every 3 (three) months. 12/25/2024 Active magnesium oxide 250 mg (150 mg elemental) Tab Take 250 mg by mouth daily. Active Encounters Date Type Department Care Team Description 03/14/2025 Transcribe Orders [facility] [address] [place] [phone] Frandy Awad NP 03/01/2025 Telephone [facility] [address] [place] [phone] Cande Rincon LPN from Last 3 Months Social History Tobacco Use Types Packs/Day Years [...] Sign Reading Time Taken Comments Blood Pressure - - Pulse - - Temperature - - Respiratory Rate - - Oxygen Saturation - - Inhaled Oxygen Concentration - - Weight 61.7 kg (136 lb) 03/01/2025 11:30 AM EDT Height 161.3 cm (5' 3.5 ) 03/01/2025 11:30 AM ED T Body Mass Index 23.71 03/01/2025 11:30 AM EDT Plan of Treatment Upcoming Encounters Date Type Department Care Team ([facility] st Contact Info) Description 05/21/2025 8:45 AM EST Office Visit [facility] [address] [place] [address] Corinna Nowak, DRY CURER [address] [address] [email or web address] Health Maintenance Due Date Last Done Comments DEPRESSION SCREENING 1992 SMOKING Hx and SMOKELESS TOBACCO SCREENING 1993 HEPATITIS C SCREENING 1998 HIV ONE-TIME SCREENING (18-6 5 YEARS) 1998 PAP SMEAR 2001 MAMMOGRAM 2020 INFLUENZA VACCINE (#1) 2024 0, 04/11/2019 COVID-19 VACCINE (2024-2 6 season) 2025 08/24/2020, 07/27/2020 Adult Td,Tdap Booster 01/11/2033 01/11/2023 HEPATITIS A VACCINES Aged Out No long er eligible based on patient's age to complete this topic HIB VACCINES Aged Out No longer eligi ble based on patient's age to complete this topic MENINGOCOCCAL VACCINES (ACWY) Aged Out No longer eligible based on patient's age to complete this topic MENINGOCOCCAL VACCINES (B) Aged Out N o longer eligible based on patient's age to complete this topic PNEUMOCOCCAL VACCINES (0-49 years) Aged Out No longer eligible b ased on patient's age to complete this topic Medical Devices Not on file Insurance O HMO O O O O O [facility] HMO Care Teams Short Haul Driver Relationship Specialty Start Date End Date Karina Rao MD [address] [place] [phone] [email or web address] PCP - General Family Medicine 03/11/25 Karina Rao MD [address] [place] [phone] [email or web address] Insurance Assigned Provider 08/27/23 Additional Source Comments The information contained in this document represents components of the legal health record. It is not the complete legal health record.[facility]
--- OUTSIDE RECORDS SUMMARY | 2025-04-16 17:44 | XMS_ITS | Patient Health Record ---
[facility] Address [address] [place] [address] Care Team Providers Care Weather Analyst Name Role Phone Karina Rao MD Primary Care Provider Codi vailable Black, Poly Unavailable [phone] Allergies Allergen (clinical drug ingredient) Drug/Non Drug [...] Insured Coverage Start Date Coverage End Date [facility] [address] [place] [address] [id number] Eveline Alejandra Self - patient is the insured Medical (General) History Medical History History ICD Code Headaches/Migraines Chicken pox Surgical History Surgery Date(Month/Year) atrial septal defect repair 06/1990 Chante Bunionectomy R 1 hr Yoel B/Dona
--- OUTSIDE RECORDS SUMMARY | 2025-04-16 17:44 | XMS_ITS | Encounter Summary ---
Author Organization [facility] Address [address] [place] [address] Phone Care Team Providers Care Take Away Attendant Name Role Phone Kellie Rucker NP Primary Care Provider + Karina Rao MD Unavailable [phone] Karina Rao MD Primary Care Provider + Encounter Details Date Type Department Care Team (Late st Contact Info) Description 03/01/2025 Telephone [facility] [address] [place] [address] Cande Rincon LPN [address] [place] [address] [email or web address] Social History Tobacco Use Types Packs/Day Years [...] on file documented as of this encounter Last Filed Vital Signs Vital Sign Reading Time Taken Comments Blood Pressure - - Pulse - - Temperature - - Respiratory Rate - - Oxygen Saturation - - Inhaled Oxygen Concentration - - Weight 61.7 kg (136 lb) 03/01/2025 11:30 AM EDT Height 161.3 cm (5' 3.5 ) 03/01/2025 11:30 AM ED T Body Mass Index 23.71 03/01/2025 11:30 AM EDT documented in this encounter Progress Notes * Cande Rincon LPN - 03/01/2025 11:29 AM EDT Patient Pre-Procedure Interview for Recall and Direct Has Patient had a COLON or EGD in the past, if so, when, where and by which provider and facility? No No results found for this or any previous visit (from the past 69227 hours). Have we seen the patient in the past 12 months for either procedure or office visit? No Visit date not found Does patient report any new active digestive symptoms or change in bowel habits? No New or worsening abdominal pain, vomiting, rectal bleeding, blood in stool. No Yes No Is the patients BMI 50 or above? There is no height or weight on file to calculate BMI. [] [x] Is the patient under 45 or older than age 80? 44 y.o. [x] [] Is the patient presenting for screening and younger than 45 with no family history of colon cancer in sibling, parent, child (if family history, and over 40, or personal history of polyps can still do direct) [] [x] Is the patient a diabetic, (if yes, on insulin pump or multiple medications) or on weight loss medication? [] [x] Is the patient disabled or use a wheelchair? [] [x] Does the patient have heart failure, congestive heart failure, or problems with heart valves, heartarrhythmia (abnormal rhythm) or any other cardiac issues [] [x] Does the patient have COPD/lung disease (stable asthma ok)? [] [x] Does the patient have kidney failure, kidney disease, or on dialysis? [x] [] Does the patient have liver failure or cirrhosis? [] [x] Has the patient had an organ transplant? [] [x] Does the patient have widespread metastatic cancer? [] [x] Is the patient on blood thinners for stents, heart disease, blood clots? [] [x] Does the patient have allergies to medications, latex, or iodine? [] [x] IF THE ANSWER TO ANY OF THE ABOVE QUESTIONS IS YES - PATIENT NEEDS CONSULT Is the patient on AICD or Pacemaker? [] [x] History of neck radiation or neck surgery? [] [x] Seirzure disorder? [] [x] Cardiomyopathy? [] [x] IF THE ANSWER TO ANY OF THE RED CHECKBOXES IS YES PATIENT SHOULD BE SCHEDULED AT [facility] (Blood Thinners: Coumadin, warfarin, plavix, clopidogrel, aggrenox, ticlid, pletal, pradaxa, dabigatran, xarelto, rivaroxaban, eliquis, apixaban) Aspirin and NSAIDS are ok. Stage 2 CKD, will need consult documented in this encounter Plan of Treatment Upcoming Encounters Date Type Department Care Team (Late st Contact Info) Description 05/21/2025 8:45 AM EST Office Visit [facility] [address] [place] [address] Corinna Nowak, NADIA [address] [place] [phone] [email or web address] documented as of this encounter Visit Diagnoses Not on filedocumented in this encounter Care Teams Take Away Attendant Relationship Specialty Start Date End Date Kellie Rucker NP [address] [place] [phone] PCP - General Family Medicine 06/19/18 03/10/25 Karina Rao MD [address] [place] [phone] PCP - General Family Medicine 03/11/25 Karina Rao MD [address] [place] [phone] Insurance Assigned Provider 08/27/23 documented as of this encounter Additional Source Comments The information contained in this document represents components of the legal health record. It is not the complete legal health record.[facility]
--- OUTSIDE RECORDS SUMMARY | 2025-04-16 17:44 | XMS_ITS | Encounter Summary ---
Author Organization [facility] Address [address] [place] [address] Phone Care Team Providers Care Cushion Gum Applicator Name Role Phone Karina Rao MD Primary Care Provider + Encounter Details Date Type Department Care Team (Late Contact Info) Description 03/29/2024 Documentation Only [facility] [address] [place] [address] Antionette Adams [address] [place] [phone] Social History Tobacco Use Types Packs/Day [...] Visit [facility] [address] [place] [address] Stan Mann MD [address] [place] [address] [place] [address] documented as of this encounter Visit Diagnoses Not on filedocumented in this encounter Care Teams Cushion Gum Applicator Relationship Specialty Start Date End Date Karina Rao MD [address] [place] [phone] PCP - General Family Medicine 06/29/22 documented as of this encounter
--- OUTSIDE RECORDS SUMMARY | 2025-04-16 17:44 | XMS_ITS | Clinical Summary ---
Author Organization [facility], Address [address] [place] [address] [place] [address] Phone Care Team Providers Care Slicing Machine Operator Name Role Phone Karina Rao MD Primary [...] (two) times a day 0 Active Multiple Vitamins-[place] als (MULTIVITAMIN ADULT EXTRA C PO) Take by mouth 3 Active SUMAtriptan (IMITREX) 25 MG tablet 2 (two) times a day Active cyanocobalamin (VITAMIN B-12) 100 MCG tablet Activ e Ascorbic Acid (Vitamin C) 500 MG capsule See administration instructions Active Active Problems Problem Noted Date Diagnosed Date Chronic kidney disease 07/22/2022 Immunizations Immunization Administration Dates Next Due Influenza, [...] Visit [facility], [address] [place] [address] Stan Mann MD [address] [place] [address] Dr. [place] [phone] Health Maintenance Due Date Last Done Comments Hepatitis B Vaccine (1 of 3 - 19+ 3-dose series) 10/18 Pneumococcal Vaccine: Peds ( 0 to 5 Years) and At-Risk Patients (6 to 49 Years) (1 of 2 - PCV) 10/19/1999 Influenza Vaccine (#1) 2025 03/01/2013 Insurance [facility] Care Teams Slicing Machine Operator Relationship Specialty Start Date End Date Karina Rao MD [address] [place] [phone] PCP - General Family Medicine 2/7/23
== END 2025-04-16 14:32 | disposition home or self-care (01) ==
LOC: HO.HSMS 13:51
PROVIDERS: PCP Family Medicine; Visit Provider Psychiatry & Neurology Neurology
DX: G43.709 Chronic migraine without aura, not intractable, without status migrainosus (principal)
CPT/HCPCS: 64615; 99499

== ENCOUNTER → 2025-04-16 13:50 | Outpatient (BNVA) | payer BC, SELFPAY | PROVIDERS: PCP Family Medicine; Visit Provider Psychiatry & Neurology Neurology | DX: G43.709 Chronic migraine without aura, not intractable, without status migrainosus (principal); S03.00XD Dislocation of jaw, unspecified side, subsequent encounter; X58.XXXD Exposure to other specified factors, subsequent encounter | CPT/HCPCS: 64615; J0585 ==